=== PATIENT | female | born 1980 | race Caucasian/White ===

== ENCOUNTER 2019-08-19 12:00 | Emergency (ER) | payer SELFPAY ==
[~2019-08-19] VITALS: Ht 162.6 cm; Wt 59.1 kg
[~2019-08-19 12:00] MED LIST: ACYC400T PO; CITA20TA6 PO; DIPH25CA58 PO; IBUP200T77 PO; MONT10TA49 PO; RANI150T2 PO; SUMA100T4 PO; TRAM50TA PO; VALP250C2 PO; prednisone PO
[2019-08-19] MEDS ORDERED: IV NORMAL SALINE 1000ML BAG 1,000 ML IV SCH (12:23)
[2019-08-19] MEDS ORDERED: ALBUTEROL SULFATE 2.5 MG/3 ML NEBU. NEB ONE (12:30)
[2019-08-19] MEDS ORDERED: NITROGLYCERIN SUBLINGUAL 0.4 MG BOTTLE OF 25. SL PRN (12:30)
--- NOTE | 2019-08-19 12:31 | PHYS DOC ---
Past Medical History Past Medical History: Anxiety, Migraines (MARINA DIAZ APRN) Past Surgical History: No Surgical History (MARINA DIAZ APRN) Smoking Status: Current Every Day Smoker Alcohol Use: None Drug Use: None (MARINA DIAZ APRN) General Adult EDM: Chief Complaint: CHEST PAIN HPI: HPI: Patient is a 38 year old female who presents with has pain or shortness of air this started 2 days ago. She states is progressively gotten worse. She states she was going to come in yesterday but her son had surgery at [facility] had a reaction to the fentanyl and she did not want to leave him. She states last night that she got up to take a few steps in the bedroom and got even more shortness of breath and became dizzy. She states that the chest pain is mid sternal sharp and radiating to her back and up the left neck and into the right arm. She does smoke cigarettes daily. She states that she does do marijuana. She states she has been clean off amphetamines for 10 years. She rates her pain a 9 out of 10. She states last night she took 5 baby aspirin and went to bed and woke this morning and she is no better. She states she has sl ight nausea but no vomiting. She states that she takes no medications daily. (MARINA DIAZ APRN) Review of Systems: Review of Systems: Respiratory: Denies cough. +shortness of breath. [] Cardiovascular: chest pain or denies edema. [] (MARINA DIAZ APRN) Heart Score: HEART Score for Chest Pain: HEART Score for Chest Pain Response (Comments) Value History Slighlty/Non-Suspicious 0 ECG Normal 0 Age < 45 0 Risk Factors 1 or 2 Risk Factors 1 Troponin < Normal Limit 0 Total 1 Risk Factors: Risk Factors: DM, Current or recent (<one month) smoker, HTN, HLP, family history of CAD, obesity. Risk Scores: Score 0 - 3: 2.5% MACE over next 6 weeks - Discharge Home Score 4 - 6: 20.3% MACE over next 6 weeks - Admit for Clinical Observation Score 7 - 10: 72.7% MACE over next 6 weeks - Early Invasive Strategies (MARINA DIAZ APRN) Current Medications: Current Medications Medications (Trade) Dose Ordered Sig/Michael Start Time Stop Time Status Last Admin Dose Admin Sodium Chloride 1,000 ml @ 1,000 mls/hr Q1H 08/19/19 12:23 08/19/19 13:22 (MARINA DIAZ APRN) Allergies: Allergies: Allergies Coded Allergies Type Severity Reaction Last Updated Verified amoxicillin Allergy Intermediate 08/06/14 Yes latex Allergy Intermediate 08/06/14 Yes (MARINA DIAZ APRN) Physical Exam: PE: Constitutional: Well developed, well nourished, no acute distress, non-toxic appearance. [] HENT: Normocephalic, atraumatic, bilateral external ears normal, oropharynx moist, no oral exudates, nose normal. [] Eyes: PERRLA, EOMI, conjunctiva normal, no discharge. [] Neck: Normal range of motion, no tenderness, supple, no stridor. [] Cardiovascular:Heart rate regular rhythm, no murmur [] Lungs & Thorax: upper Bilateral breath sounds expiratory wheezing and lower clear to auscultation [] Abdomen: Bowel sounds normal, soft, no tenderness, no masses, no pulsatile masses. [] Skin: Warm, dry, no erythema, no rash. [] Back: No tenderness, no CVA tenderness. [] Extremities: No tenderness, no cyanosis, no clubbing, ROM intact, no edema. [] Neurologic: Alert and oriented X 3, normal motor function, normal sensory function, no focal deficits noted. [] Psychologic: Affect normal, judgement normal, mood normal. [] (MARINA DIAZ APRN) EKG: EK and read by Dr Piper as NSR and no STEMI[] (MARINA DIAZ APRN) Radiology/Procedures: Radiology/Procedures: [] Impression: [facility] [address] [place] [address] IMAGING REPORT Signed PATIENT: TOBI RUBIO ACCOUNT: [id number] : 1980 LOCATION: ER AGE: 38 SEX: F EXAM STATUS: PRE ER ORD. PHYSICIAN: MARINA DIAZ APRN REASON: chest pain PROCEDURE: PORTABLE CHEST 1V EXAM: CHEST ONE VIEW. HISTORY: Chest pain. COMPARISON: None. FINDINGS: A frontal view of the chest is obtained. There are no confluent infiltrates. The lungs are expanded to the 12th posterior ribs. There is no pneumothorax or pleural effusion. The heart is not enlarged. IMPRESSION: 1. Hyperinflation. Correlate for air trapping versus deep inspiratory effort. No confluent infiltrates. Electronically signed by: Luz Marina Rebolledo MD (08/19/2019 12:41 PM) [id number] DICTATED and SIGNED BY: CHARMAINE REBOLLEDO MD DATE: 08/19/19 1241 (MARINA DIAZ APRN) Course & Med Decision Making: Course & Med Decision Making Pertinent Labs and Imaging studies reviewed. (See chart for details) Ambulatory but becomes more breathless with exertion. Lungs are clear in lower lobes but slight expiratory wheezes in upper lobes. Patient states her chest feels like pressure and it feels tight. She states she is never been diagnosed with asthma or COPD but she is a smoker. She is alert and oriented and speaks in full complete sentences. Patient denies LOC, numbness or tingling, abdominal pain, vomiting, diarrhea, fever, cough, dizziness at this time, vision changes, headache, focal weakness. No extremity swelling. I spoke to Dr. Corbin who states that if the patient wants states fine but if she wants to leave that is also fine she can just follow-up with him. Patient is given the option of admission. Patient states she would like to go home. Patient is stable and in no distress. She states her symptoms have totally resolved. She states the nitro took away her chest pain. She states that the Solu-Medrol and the albuterol helped her breathe better. I will discharge her with a inhaler and she is to follow-up with Dr. Corbin. [] (MARINA DIAZ APRN) Dragon Disclaimer: Dragrashard Disclaimer: This electronic medical record was generated, in whole or in part, using a voice recognition dictation system. (MARINA DIAZ APRN) Departure Departure Impression: Primary Impression: Chest pain Qualified Codes: R07.9 - Chest pain, unspecified Additional Impression: Shortness of breath Disposition: HOME, SELF-CARE Condition: STABLE Referrals: MERRITT CORBIN MD (PCP) Patient Instructions: Chest Pain (Nonspecific), Shortness of Breath, [id number] Additional Instructions: Follow-up with Dr. Corbin as he is possible. I also refer you to a computer publisher. Return for severe recurring symptoms. Scripts Methylprednisolone (MEDROL) 4 Mg Tab.ds.pk 1 PKG PO UD, #1 PKG Prov: MARINA DIAZ APRN 08/19/19 Albuterol Sulfate (PROAIR HFA INHALER) 8.5 Gm Hfa.aer.ad 1 PUFF INH PRN Q6HRS PRN for SHORTNESS OF BREATH, #1 INHALER 0 Refills Prov: MARINA DIAZ APRN 08/19/19 Justicifation of Admission Dx: Justifications for Admission: Justification of Admission Dx: N/A (MARINA DIAZ APRN) Attending Signature Attending Signature I have participated in the care of this patient and I have reviewed and agree with all pertinent clinical information above including history, exam, and recommendations. (DO PIPER DO) MARINA DIAZ APRN Aug 19, 2019 12:31 DO PIPER DO Aug 19, 2019 15:16
--- NOTE | 2019-08-19 12:44 | RAD ---
EXAM: CHEST ONE VIEW. HISTORY: Chest pain. COMPARISON: None. FINDINGS: A frontal view of the chest is obtained. There are no confluent infiltrates. The lungs are expanded to the 12th posterior ribs. There is no pneumothorax or pleural effusion. The heart is not enlarged. IMPRESSION: 1. Hyperinflation. Correlate for air trapping versus deep inspiratory effort. No confluent infiltrates. Electronically signed by: Luz Marina Rebolledo MD (08/19/2019 12:41 PM) [id number]
[2019-08-19 12:47] LABS: BASO # 0.1 x10^3/uL (0.0-0.2); BASO % 1 % (0-3); EOS % 1 % (0-3); HEMATOCRIT 40.2 % (36.0-47.0); HEMOGLOBIN 14.1 g/dL (12.0-15.5); LYMPH # 1.4 x10^3/uL (1.0-4.8); LYMPH % 15 % (24-48); MEAN CORPUSCULAR HEMOGLOBIN 33 pg (25-35); MEAN CORPUSCULAR HGB CONC 35 g/dL (31-37); MEAN CORPUSCULAR VOLUME 94 fL (79-100); MONO # 0.4 x10^3/uL (0.0-1.1); MONO % 4 % (0-9); NEUT # 7.4 x10^3/uL (1.8-7.7); NEUT % 79 % (31-73); PLATELET COUNT 378 x10^3/uL (140-400); RED BLOOD COUNT 4.28 x10^6/uL (3.50-5.40); RED CELL DISTRIBUTION WIDTH 11.9 % (11.5-14.5); WHITE BLOOD COUNT 9.3 x10^3/uL (4.0-11.0)
[2019-08-19 12:57] LABS: CALCIUM 9.1 mg/dL (8.5-10.1); CREATININE 0.8 mg/dL (0.6-1.0); GFR 80.3; POTASSIUM 3.5 mmol/L (3.5-5.1); PROTHROMBIN TIME PATIENT 13.2 SEC (11.7-14.0)
[2019-08-19 13:02] LABS: ALBUMIN 4.3 g/dL (3.4-5.0); ALBUMIN/GLOBULIN RATIO 1.2 (1.0-1.7); TOTAL BILIRUBIN 0.6 mg/dL (0.2-1.0)
[2019-08-19 13:09] LABS: D-DIMER < 0.27 ug/mlFEU (0.00-0.50)
[2019-08-19] MEDS ORDERED: methylPREDNISolone SOD SUCC PF 125 MG/2 ML VIAL. IV ONE (13:15)
--- NOTE | 2019-08-19 13:34 | EKG ---
[facility] [address] [place] [address] Test Date: 2019-08-19 Test Time: 12:09:25 Pat Name: TOBI RUBIO Department: Room: Gender: F Tentmaker: : 1980 Requested By: MARINA DIAZ Order Number: [id number] Reading MD: Measurements Intervals [place] Rate: 84 P: 64 MA: 146 QRS: 37 QRSD: 86 T: 36 QT: 370 QTc: 440 Interpretive Statements SINUS RHYTHM NORMAL ECG RI6.01 No previous ECG available for comparison
[2019-08-19 13:41] LABS: BILIRUBIN,URINE NEGATIVE (NEG); CLARITY,URINE CLEAR; COLOR,URINE YELLOW; NITRITE,URINE NEGATIVE (NEG); PROTEIN,URINE NEGATIVE (NEG-TRACE); UROBILINOGEN,URINE 0.2 mg/dL (0.2 mg/dL)
[2019-08-19 13:48] LABS: SQUAMOUS EPITHELIAL CELL,UR MOD /LPF
[2019-08-19 13:49] LABS: BACTERIA,URINE MANY /HPF (0-FEW)
[2019-08-19 13:55] LABS: AMPHETAMINE/METHAMPHETAMINE NEG (NEG); BARBITURATES NEG (NEG); BENZODIAZEPINES NEG (NEG); CANNABINOIDS POS (NEG); COCAINE NEG (NEG); METHADONE NEG (NEG); OPIATES NEG (NEG); PHENCYCLIDINE NEG (NEG)
[2019-08-19 14:22] VITALS: BP 124/74
[2019-08-19] MEDS ORDERED: METH4TAB2 PO (14:27)
[2019-08-19] MEDS ORDERED: ALBU2.5V8 INH (14:27)
== END 2019-08-19 14:34 | disposition home or self-care (01) ==
LOC: ER 12:00
DX: R07.2 Precordial pain (principal); R06.02 Shortness of breath; R42 Dizziness and giddiness; G43.909 Migraine, unspecified, not intractable, without status migrainosus; F17.210 Nicotine dependence, cigarettes, uncomplicated; Z88.1 Allergy status to other antibiotic agents; Z91.040 Latex allergy status
CPT/HCPCS: 36415; 71045; 80053; 80307; 81001; 83880; 84484; 85025; 85379; 85610; 87086; 93005; 94640; 96361; 96374; 99285; J2930; J7030; J7613

== ENCOUNTER 2019-10-12 18:14 | Inpatient (IN) | payer OTHER ==
[~2019-10-12] VITALS: Ht 162.6 cm; Wt 63.0 kg
[~2019-10-12 18:14] MED LIST changes: +ALBU2.5V8 INH; +METH4TAB2 PO
[2019-10-12] MEDS ORDERED: ALPRAZolam 0.5 MG TABLET PO PRN (18:45)
[2019-10-12 19:00] VITALS: BP 118/71
--- NOTE | 2019-10-12 19:00 | NUR ---
The patient, TOBI RUBIO, 38 y/o, F admitted by NEVILLE GUNTER MD, was given written information regarding hospital policies, unit procedures and contact persons. Valuables were checked and left with her.
[2019-10-12 19:16] LABS: BASO # 0.1 x10^3/uL (0.0-0.2); BASO % 2 % (0-3); EOS # 0.2 x10^3/uL (0.0-0.7); EOS % 2 % (0-3); HEMATOCRIT 37.8 % (36.0-47.0); HEMOGLOBIN 13.1 g/dL (12.0-15.5); LYMPH # 2.4 x10^3/uL (1.0-4.8); LYMPH % 33 % (24-48); MEAN CORPUSCULAR HEMOGLOBIN 32 pg (25-35); MEAN CORPUSCULAR HGB CONC 35 g/dL (31-37); MEAN CORPUSCULAR VOLUME 94 fL (79-100); MONO # 0.4 x10^3/uL (0.0-1.1); MONO % 6 % (0-9); NEUT # 4.2 x10^3/uL (1.8-7.7); NEUT % 58 % (31-73); PLATELET COUNT 329 x10^3/uL (140-400); RED BLOOD COUNT 4.04 x10^6/uL (3.50-5.40); RED CELL DISTRIBUTION WIDTH 12.2 % (11.5-14.5); WHITE BLOOD COUNT 7.2 x10^3/uL (4.0-11.0)
[2019-10-12 19:42] LABS: ALBUMIN 3.9 g/dL (3.4-5.0); ALBUMIN/GLOBULIN RATIO 1.3 (1.0-1.7); CALCIUM 9.2 mg/dL (8.5-10.1); CREATININE 0.6 mg/dL (0.6-1.0); GFR 111.9; POTASSIUM 3.7 mmol/L (3.5-5.1); TOTAL BILIRUBIN 0.3 mg/dL (0.2-1.0)
[2019-10-12 19:52] LABS: FREE T4 1.04 ng/dL (0.76-1.46); THYROID STIM HORMONE (TSH) 1.737 uIU/mL (0.358-3.74)
[2019-10-12] MEDS ORDERED: CITALOPRAM 20 MG TABLET. PO SCH (20:00)
--- NOTE | 2019-10-12 21:01 | EKG ---
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
[2019-10-12] MEDS ORDERED: NITROGLYCERIN SUBLINGUAL 0.4 MG BOTTLE OF 25. SL PRN (21:30)
[2019-10-12] MEDS ORDERED: LIDO:MAALOX 1:1 20 ML SINGLE DOSE. PO PRN (21:30)
[2019-10-12 23:00] VITALS: BP 118/63
[2019-10-12] MEDS ORDERED: CONTRAST GIVEN. MC PRN (23:30)
[2019-10-12] MEDS ORDERED: IOHEXOL 350 MG/ML 100 ML VIAL. IV ONE (23:45)
--- NOTE | 2019-10-13 00:39 | EKG ---
[facility] [address] [place] [address] Test Date: 2019-10-13 Test Time: 00:32:25 Pat Name: TOBI RUBIO Department: Room: 521 1 Gender: F Guest Services Ambassador: SERAFIN : 1980 Requested By: NEVILLE GUNTER Order Number: [id number] Reading MD: Measurements Intervals [place] Rate: 61 P: 49 ME: 168 QRS: 31 QRSD: 86 T: 37 QT: 422 QTc: 426 Interpretive Statements SINUS RHYTHM NORMAL ECG RI6.02 Compared to ECG 10/12/2019 20:51:08 No significant changes
[2019-10-13 01:54] LABS: CHOLESTEROL/HDL RATIO 6.6
[2019-10-13 03:00] VITALS: BP 109/75
[2019-10-13 07:00] VITALS: BP 112/79
--- NOTE | 2019-10-13 08:15 | RAD ---
CT ANGIOGRAPHY CHEST INDICATION: chest pain Comparison: None. TECHNIQUE: Following the uneventful administration of intravenous contrast, 90 cc Omnipaque 300, axial CT sections were obtained through the lungs and upper abdomen. Multiplanar reconstructions and MIP images were obtained. PQRS compliance statement: One or more of the following individualized dose reduction techniques were utilized for this examination: 1. Automated exposure control 2. Adjustment of the mA and/or kV according to patient size 3. Use of iterative reconstruction technique FINDINGS: Pulmonary arteries: No evidence of pulmonary thromboembolic disease. Lungs and Airways: No pulmonary mass or consolidation. Paraseptal and centrilobular emphysema. No abnormality of the central airways. Pleura: The pleural spaces are normal. Heart and Mediastinum: The visualized thyroid is normal in size and attenuation. No axillary or supraclavicular lymphadenopathy. No mediastinal, hilar or retrocrural lymphadenopathy. The heart and pericardium are within normal limits. The great vessels of the thorax are normal. Abdomen: Limited images through the upper abdomen show no abnormality of the visualized organs. Bones and Soft Tissues: The visualized bones and chest wall soft tissues are within normal limits. IMPRESSION: 1. No evidence of pulmonary thromboembolic disease. 2. No pulmonary mass or consolidation. 3. Paraseptal and centrilobular emphysema. Electronically signed by: Hardik Donaldson MD (10/13/2019 8:12 AM) [id number]
--- NOTE | 2019-10-13 08:45 | PDOC ---
Provider Note Provider Note suspicious for angina, ct ok, labs ok- was going to order stress echo but will see if cv want to cath her first or not- d/w her, reduce celexa dose re nausea- dictated Justicifation of Admission Dx: Justifications for Admission: Justification of Admission Dx: N/A MERRITT CORBIN MD Oct 13, 2019 08:45
--- NOTE | 2019-10-13 09:17 | HP ---
ADMIT DATE: 10/12/2019 CHIEF COMPLAINT: Recurrent chest pain. HISTORY OF PRESENT ILLNESS: A 38-year-old white female has been having lower midsternal chest pain on and off for the last few weeks. This is at times exertional and at times at rest and it is squeezing and pressure like usually in the lower sternum, specifically radiating to both sides of her lower jaw and neck. This can be relieved by rest and sometimes brought on by stress. She was seen in the ER once and advised to be admitted, but declined because of COVID concerns. CTA done yesterday as well as EKG and laboratory studies were unremarkable. PAST HISTORY: She has had no surgeries. She takes no current medications. We started her on citalopram again today for depression and anxiety. ALLERGIES: No drug allergies are known. SOCIAL HISTORY: Very heavy smoker. She is in a relationship. 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 She is a nondrinker. FAMILY HISTORY: Father of heart disease in his 60s and her mother is living with heart disease, currently. I am not sure about the siblings. No sign of cancer in the family. REVIEW OF SYSTEMS: No other specific abnormalities or complaints were noted. OBJECTIVE: ENT: All within normal limits. NECK: No masses, nodes, or bruits. LUNGS: Clear. CARDIOVASCULAR: Regular rate. Heart tones distant. No murmur or rub is heard. ABDOMEN: Soft, benign, and nontender. EXTREMITIES: She has mildly reduced pedal pulses and 1+ clubbing. No joint or skin lesions are noted. NEUROLOGIC: Deferred. PHYSIOLOGIC: Deferred. GENITOURINARY: Deferred. RECTAL: Deferred. ASSESSMENT: Chest pain is reasonably suspicious for anginal/coronary artery disease in origin despite her young age. Strong tobacco history and strong family history of coronary artery disease is concerning as well. She does have some tobaccoism and early COPD changes on her CT. PLAN: Nitroglycerin next time she has chest pain. Cardiac consultation has been obtained and we will see if they would recommend stress echo versus just proceeding directly to cardiac cath as either option would appear to be reasonable at this point. MERRITT CORBIN MD DR: OCTAVIANO/hernandez JOB#: [id number] / [id number]
--- NOTE | 2019-10-13 10:04 | NUR ---
SW following. Discussed with RN, pt from home, room air, NPO. Possible stress test today. SW will continue to follow.
[2019-10-13 11:08] VITALS: BP 102/73
--- NOTE | 2019-10-13 12:10 | PDOC2 ---
[address] DRIVER 10/13/19 1210: CARDIAC CONSULT DATE OF CONSULT Date of Consult DATE: 10/13/19 TIME: 11:52 REASON FOR CONSULT Reason for Consult: Chest pain REFERRING PHYSICIAN Referring Physician: Trusty SOURCE Source: Chart review, Patient HISTORY OF PRESENT ILLNESS HISTORY OF PRESENT ILLNESS This is a pleasant 38 yo female admitted for complains of chest pain. Reports that this has been going in the last several months. This kept on which prompted her to finally come to ED. Reports of MORALES and also with sharp left chest pain that sometimes converts to pressure and sometimes goes to her jaw and arm. This occurs with activity and sometimes at rest. THis has been occurring in the last several months. Sometimes it hurts when taking a deep breath. No recent falls or injury and no past VTE nor CAD. She has hx of PUD and takes PRN prilosec since she discontinued her zantac. She could point to her left chest with fingerbreadth width where the pain originates. She does have COPD which is not known until a PFTs that was described by her was performed in her PCPs office. Her VSS EKG NSR with negative cardiac biomarkers. She does have anxiety issues, smokes marijuana and smokes at least 2 ppd of tobacco. Presently she does not have any symptoms. She does have migraine maintained by depvyte and ni. Has not had an attack in a whle and has not take any triptans in a while. Denies cough, fever. No recent pulmonary infection. PAST MEDICAL HISTORY Cardiovascular: No pertinent hx Pulmonary: COPD CENTRAL NERVOUS SYSTEM: Migraine GI: GERD, Peptic Ulcer disease Heme/Onc: No pertinent hx Hepatobiliary: No pertinent hx Psych: Anxiety Musculoskeletal: Osteoarthritis Rheumatologic: No pertinent hx Infectious disease: No pertinent hx ENT: No pertinent hx Renal/: No pertinent hx Endocrine: No pertinent hx Dermatology: No pertinent hx PAST SURGICAL HISTORY Past Surgical History: Other (left lumpectomy) FAMILY HISTORY Family History: Coronary Artery Disease (mother and father in their 60s) SOCIAL HISTORY Smoke: 2 packs per day ALCOHOL: none Drugs: Marijuana, 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) Lives: with Family CURRENT MEDICATIONS CURRENT MEDICATIONS Current Medications Medications (Trade) Dose Ordered Sig/Michael Route PRN Reason Start Time Stop Time Status Last Admin Dose Admin Citalopram Hydrobromide (CeleXA) 20 mg DAILY PO 10/12/19 20:00 10/13/19 08:43 DC 10/12/19 20:59 Alprazolam (Xanax) 0.5 mg PRN Q6HRS PRN PO ANXIETY / AGITATION 10/12/19 18:45 10/12/19 21:00 Multi-Ingredient Mouthwash/Gargle (Gi Cocktail) 20 ml PRN QID PRN PO CHEST PAIN 10/12/19 21:30 10/12/19 21:33 Iohexol (Omnipaque 350 Mg/ml) 90 ml 1X ONCE IV 10/12/19 23:45 10/12/19 23:46 DC 10/12/19 23:30 ALLERGIES ALLERGIES: Coded Allergies: amoxicillin (Verified Allergy, Intermediate, 08/06/14) latex (Verified Allergy, Intermediate, 08/06/14) ROS Review of System 14 point ROS evlauated with pertinent positives noted per HPI PHYSICAL EXAM General: Alert, Oriented X3, Cooperative, No acute distress HEENT: Atraumatic, Mucous membr. moist/pink Lungs: Clear to auscultation, Normal air movement Heart: Regular rate (SR no ectopies), Normal S1, Normal S2, No murmurs Abdomen: Soft, No tenderness Extremities: No cyanosis, No edema Skin: No breakdown, No significant lesion Neuro: Normal speech, Sensation intact Psych/Mental Status: Mental status NL, Mood NL MUSCULOSKELETAL: Osteoarthritic changes both hands VITALS/I&O VITALS/I&O: Vital Signs Date Time Temp Pulse Resp B/P (MAP) Pulse Ox O2 Delivery O2 Flow Rate FiO2 10/13/19 11:08 98.8 72 16 102/73 (83) 99 Room Air 98.8 I & O 10/12/19 10/12/19 10/13/19 15:00 23:00 07:00 Intake Total 0 ml 0 ml Balance 0 ml 0 ml LABS Lab: Laboratory Tests Test 10/12/19 19:00 10/13/19 00:55 White Blood Count 7.2 x10^3/uL (4.0-11.0) Red Blood Count 4.04 x10^6/uL (3.50-5.40) Hemoglobin 13.1 g/dL (12.0-15.5) Hematocrit 37.8 % (36.0-47.0) Mean Corpuscular Volume 94 fL (79-100) Mean Corpuscular Hemoglobin 32 pg (25-35) Mean Corpuscular Hemoglobin Concent 35 g/dL (31-37) Red Cell Distribution Width 12.2 % (11.5-14.5) Platelet Count 329 x10^3/uL (140-400) Neutrophils (%) (Auto) 58 % (31-73) Lymphocytes (%) (Auto) 33 % (24-48) Monocytes (%) (Auto) 6 % (0-9) Eosinophils (%) (Auto) 2 % (0-3) Basophils (%) (Auto) 2 % (0-3) Neutrophils # (Auto) 4.2 x10^3/uL (1.8-7.7) Lymphocytes # (Auto) 2.4 x10^3/uL (1.0-4.8) Monocytes # (Auto) 0.4 x10^3/uL (0.0-1.1) Eosinophils # (Auto) 0.2 x10^3/uL (0.0-0.7) Basophils # (Auto) 0.1 x10^3/uL (0.0-0.2) Sodium Level 142 mmol/L (136-145) Potassium Level 3.7 mmol/L (3.5-5.1) Chloride Level 104 mmol/L (98-107) Carbon Dioxide Level 26 mmol/L (21-32) Anion Gap 12 (6-14) Blood Urea Nitrogen 9 mg/dL (7-20) Creatinine 0.6 mg/dL (0.6-1.0) Estimated GFR (Cockcroft-Gault) 111.9 BUN/Creatinine Ratio 15 (6-20) Glucose Level 86 mg/dL (70-99) Calcium Level 9.2 mg/dL (8.5-10.1) Total Bilirubin 0.3 mg/dL (0.2-1.0) Aspartate Amino Transferase (AST) 11 U/L (15-37) L Alanine Aminotransferase (ALT) 15 U/L (14-59) Alkaline Phosphatase 64 U/L (46-116) Troponin I Quantitative < 0.017 ng/mL (0.000-0.055) < 0.017 ng/mL (0.000-0.055) DS-Rdd-P-Type Natriuretic Peptide 125 pg/mL (0-124) H Total Protein 7.0 g/dL (6.4-8.2) Albumin 3.9 g/dL (3.4-5.0) Albumin/Globulin Ratio 1.3 (1.0-1.7) Thyroid Stimulating Hormone (TSH) 1.737 uIU/mL (0.358-3.74) Free Thyroxine 1.04 ng/dL (0.76-1.46) Triglycerides Level 132 mg/dL (0-150) Cholesterol Level 190 mg/dL (0-200) LDL Cholesterol, Calculated 135 mg/dL (0-100) H VLDL Cholesterol, Calculated 26 mg/dL (0-40) Non-HDL Cholesterol Calculated 161 mg/dL (0-129) H HDL Cholesterol 29 mg/dL (40-60) L Cholesterol/HDL Ratio 6.6 Laboratory Tests 10/12/19 19:00 Laboratory Tests 10/12/19 19:00 ASSESSMENT/PLAN ASSESSMENT/PLAN 1. Chest pain: mixed features. suspect anxiety. CTA chest noted with no acute findings with nml vessels and heart size. 2. Chronic Dyspnea: suspect from COPD. Start early this yr 3. COPD: new finding 4. Tobaccoism 5. Marijuana use 6. DLP 7. Hx of PUD: on PRN prilosec per her. Recommendations 1. Trops are normal, EKG NSR x2. OK to DC, optimize COPD meds per PCP. May DC to home plan for stress echo in 48 hrs 2. Baby ASA, low dose lipitor 3. PPI per PCP 4. SMoking and marijuana cessation EVIE POLO MD 10/13/19 9706: CARDIAC CONSULT ASSESSMENT/PLAN ASSESSMENT/PLAN Patient seen and examined. Agree with above nurse practitioner note. [address] DRIVER Oct 13, 2019 12:10 EVIE POLO MD Oct 13, 2019 17:09
[2019-10-13] MEDS ORDERED: NICOTINE 21MG PATCH. TD SCH (13:00)
[2019-10-13] MEDS ORDERED: ONDANSETRON ODT 4 MG TAB.RAPDIS. PO ONE (13:00)
[2019-10-13 15:12] VITALS: BP 103/73
--- NOTE | 2019-10-13 15:56 | NUR ---
pt discharged home with significant other. pt refused wheelchair escort. Pt stable upon DC. IV removed, cath intact. meds and follow up reviewed. pt provided with thorough instructions regarding MPI on 10/14
--- NOTE | 2019-10-13 19:52 | DS ---
DATE OF DISCHARGE: 10/13/2019 HOSPITAL SUMMARY: The patient is a 38-year-old white female who has been having recurrent chest pain on and off over the last few months, who was admitted per Dr. Luo from our office. Pain was lower, midsternal in nature, often radiating to both sides of her jaw and her neck and sometimes left shoulder. Sometimes with exertion and other times not. EKGs x 2 have been unremarkable and labs were unremarkable as well. CTA of the chest showed no sign of pulmonary emboli, but changes of COPD were seen. Cardiology was consulted and decided to do an outpatient stress test and we will arrange that as soon as possible and the patient was comfortable to be discharged. FINAL DIAGNOSES: Chest pain suspicious for coronary artery disease. OPERATIONS, PROCEDURES, COMPLICATIONS: None. CONSULTATIONS: Dr. Skinner. DISPOSITION: Home medications remain the same except aspirin 81 mg daily and atorvastatin 10 mg daily, started per Cardiology. Tobacco avoidance encouraged and she will have the outpatient stress echocardiogram as arranged by the manager automotive and go back to the hospital if she has recurrent pain at rest to consider urgent cardiac catheterization. MERRITT CORBIN MD DR: OCTAVIANO/hernandez JOB#: [id number] / [id number]
[2019-10-13] MEDS ORDERED: CITALOPRAM 10 MG TABLET. PO SCH (21:00)
== END 2019-10-13 15:57 | disposition home or self-care (01) | DRG 303 ==
LOC: 5 NORTH 18:14
PROVIDERS: ADMIT Family Medicine; ATTEND Family Medicine
DX: I25.10 Atherosclerotic heart disease of native coronary artery without angina pectoris (principal); F12.90 Cannabis use, unspecified, uncomplicated; F17.210 Nicotine dependence, cigarettes, uncomplicated; F41.9 Anxiety disorder, unspecified; G43.909 Migraine, unspecified, not intractable, without status migrainosus; J44.9 Chronic obstructive pulmonary disease, unspecified; Z82.49 Family history of ischemic heart disease and other diseases of the circulatory system; K21.9 Gastro-esophageal reflux disease without esophagitis; M19.90 Unspecified osteoarthritis, unspecified site; Z88.8 Allergy status to other drugs, medicaments and biological substances
CPT/HCPCS: 36415; 71275; 80053; 80061; 83880; 84439; 84443; 84484; 85025; 93005; Q9967; G0378

== ENCOUNTER → 2019-10-15 | Outpatient (CLI) | payer OTHER ==
[2019-10-13 11:08] VITALS: BP_DIAS 73
[2019-10-13 15:12] VITALS: BP_SYST 103
--- NOTE | 2019-10-16 09:33 | CARD ---
MR#: [id number] Date of Study: 10/15/2019 Ordering Physician: JAKE VALENTINE, Referring Physician: Tim CARY: Mely Michaud APPROVED REPORT INDICATION COPD Dyspnea RISK FACTORS Hyperlipidemia Smoking Reason : Patient complained of shortness of breath PROCEDURE The patient underwent an Exercise Stress Test using the Lobo Protocol. Blood pressure, heart rate, a nd EKG were monitored. An Echocardiogram was performed by optical engineering technician in four stages in quad fashion. At peak stress four se lected images were obtained and placed side by side with resting images for comparison. STRESS ECHO FINDINGS The resting Echocardiogram showed normal left ventricular systolic contractility with an estimated Ej ection Fraction of about 50 %. The Resting Echocardiogram showed normal augmentation of myocardial wall segments using a 16 segment model. The Stress Echocardiogram showed normal augmentation of myocardial wall segments using a 16 segment m dajuan. The Stress Echocardiogram left ventricular systolic contractility has an estimated Ejection Fraction of about 70%. Test Type: Exercise Stress Nurse/Tech: Sarah Gaytan R.N. Test Indications: chest pain Cardiac History and Allergies: HLD, COPD, smoker Resting Heart Rate: 60 bpm Resting Blood Pressure: 119/69mmHg Pretest Chest Pain: No chest pain Nurse/Tech Notes lungs cta Stress Symptoms Dyspnea POST EXERCISE Reason for Termination: Reached target heart rate Target HR: Yes Max HR: 160 bpm 88% of Maximum Predicted HR: 182 bpm Exercise duration: 8:38 min:sec, 3 Stage Exercise capacity: 10.1METs Max Blood Pressure: 149/65mmHg Blood Pressure response to exercise: Normal blood pressure response during stress. Heart Rate response to exercise: normal Chest Pain: No. Arrhythmia: No. INTERPRETATION Stress EKG Conclusion: The resting EKG showed a normal sinus rhythm. The stress EKG showed no significant changes from baseline. No EKG evidence of stress-induced ischemia. Preliminary Notification Critical Value: No <Conclusion> Good exercise tolerance. No reported chest pain with exertion. No EKG evidence of stress-induced ischemia or arrhythmias. On echocardiogram normal LV systolic function at rest. No echocardiographic evidence of stress-induced ischemia, no regional wall motion abnormalities. Low risk treadmill stress echo. Signed by : Jake Valentine MD Electronically Approved : 10/16/2019 09:33:08
== END | disposition home or self-care (01) ==
LOC: ECHO 14:10
PROVIDERS: ATTEND Internal Medicine Cardiovascular Disease
DX: R07.9 Chest pain, unspecified (principal)
CPT/HCPCS: 93017; 93350